=== PATIENT | male | born 1960 ===

== ENCOUNTER 2020-05-08 12:50 | Emergency (ER) | payer OTHER ==
--- NOTE | 2020-05-08 14:24 | CR ---
INDICATION: Cough TECHNIQUE: Chest 1 view. COMPARISON: None. FINDINGS: Cardiovascular and mediastinum: Heart size and vasculature are normal in caliber and appearance. Mediastinum is within normal limits. Lungs and pleural space: Lungs are clear. No sign of infiltrate or mass. No sign of pleural effusion. No pneumothorax. Bones and soft tissues: No significant findings. IMPRESSION: Unremarkable chest. Dictated by: Bert Cifuentes MD @ 05/08/2020 14:22:55 (Electronically Signed)
[2020-05-08 14:30] LABS: BLOOD UREA NITROGEN,BUN 25 mg/dL (7.0-18.0); CARBON DIOXIDE,CO2 28.8 mmol/L (21.0-32.0); CHLORIDE,CL 102 mmol/L (98-107); GLUCOSE RANDOM 123 mg/dL (74-106); POTASSIUM,K 4.7 mmol/L (3.5-5.1); SODIUM,NA 139 mmol/L (136-148)
--- NOTE | 2020-05-08 14:37 | EDM.PDOC ---
ED HPI GENERAL MEDICAL PROBLEM - General Chief Complaint: Respiratory Problem Stated Complaint: WHEEZING CHEST/COUGH Time Seen by Provider: 05/08/20 13:13 Source of Information: Reports: Patient History Limitations: Reports: No Limitations - History of Present Illness INITIAL COMMENTS - FREE TEXT/NARRATIVE: HISTORY AND PHYSICAL: History of present illness: Patient is a 59-year-old male who presents to the ED today with concern of a productive cough x2 days. Patient states he was told by his work that he needed to come in to be evaluated in the emergency room for possible pneumonia or bronchitis. Patient states that he would not like to do any Covid or influenza testing as he can "get this for free at the [facility] ". Patient states that he was told by his boss if he was cleared for pneumonia or bronchitis that he could come back to work. Patient states he is coughing up a small amount of phlegm. Patient states that he "gets this every year ". Patient states he has a history of prior [place], pneumonia, diabetes, and prior bronchitis. Patient denies any other symptoms or concerns. Patient denies fever, chills, chest pain, shortness of breath. Denies headache, neck stiff ness, change in vision, syncope, or near syncope. Denies nausea, vomiting, abdominal pain, diarrhea, constipation, or dysuria. Has not noted any blood in urine or stool. Patient has been eating and drinking appropriately. Review of systems: As per history of present illness and below otherwise all systems reviewed and negative. Past medical history: As per history of present illness and as reviewed below otherwise noncontributory. Surgical history: As per history of present illness and as reviewed below otherwise noncontributory. Social history: See social history for further information Family history: As per history of present illness and as reviewed below otherwise noncontributory. Physical exam: General: Patient is alert, oriented, and in no acute distress. Patient sitting comfortably on exam table. Vital stable and reviewed by me. HEENT: Atraumatic, normocephalic, pupils equal and reactive bilaterally, negative for conjunctival pallor or scleral icterus, mucous membranes moist, TMs normal bilaterally, throat clear, neck supple, nontender, trachea midline. No drooling or trismus noted. No meningeal signs. No hot potato voice noted. Lungs: Patient speaking clearly without breathlessness, no wheezing or stridor, no accessory muscle use or respiratory distress. Auscultation deferred due to current COV-ID 19 outbreak. Heart: Auscultation deferred due to current COV-ID 19 outbreak. Abdomen: Soft, nondistended, nontender. Negative for masses or hepatosplenomegaly. Negative for costovertebral tenderness. Pelvis: Stable nontender. Genitourinary: Deferred. Rectal: Deferred. Skin: Intact, warm, dry. No lesions or rashes noted. Extremities: Atraumatic, negative for cords or calf pain. Neurovascular unremarkable. Neuro: Awake, alert, oriented. Cranial nerves II through XII unremarkable. Cerebellum unremarkable. Motor and sensory unremarkable throughout. Exam nonfocal. Notes: Signs and symptoms that would prompt return to the ED thoroughly discussed with patient. Discussed importance for follow-up with his primary care provider. Voices understanding and is agreeable to plan of care. Denies any further questions or concerns at this time. Diagnostics: EKG, CBC, CMP, CXR, Trop (Declines influenza, covid) Therapeutics: None Prescription: None Impression: Cough Plan: 1. You can use OTC cough medications as directed for symptom management. 2. Encourage you to get COVID testing as discussed. If you continue to have symptoms, would recommend quarantine until either COVID testing performed or per [place] guidelines below. 3. For more specific guidelines regarding isolation/quarantine please visit this website. https://www.health.nd.gov/sites/www/files/documents/Files/MITZI/coronavirus/Factsh eet_for_People_With_COVID-19.pdf 4. Aloe up with a primary care provider as discussed. Return to the ED as needed and as discussed. Definitive disposition and diagnosis as appropriate pending reevaluation and review of above. - Related Data Allergies Allergy/AdvReac Type Severity Reaction Status Date / Time No Known Allergies Allergy Verified 05/08/20 13:20 Home Meds: Home Meds Aspirin 325 mg PO DAILY 05/08/20 [History] Insulin Detemir [Levemir] 125 units SUBCUT BID 05/08/20 [History] Levothyroxine 05/08/20 [History] atorvaSTATin [Lipitor] 05/08/20 [History] lisinopriL [Lisinopril] 05/08/20 [History] metFORMIN [Glucophage XR] 05/08/20 [History] Past Medical History HEENT History: Reports: Impaired Vision Cardiovascular History: Reports: High Cholesterol, Hypertension, [place] Gastrointestinal History: Reports: GERD Endocrine/Metabolic History: Reports: Diabetes, Type II, Hypothyroidism - Past Surgical History Cardiovascular Surgical History: Reports: Coronary Artery Stent Social & Family History - Family History Family Medical History: No Pertinent Family History - Tobacco Use Tobacco Use Status *Q: Current Every Day Tobacco User Years of Tobacco use: 14 Packs/Tins Daily: 1 - Caffeine Use Caffeine Use: Reports: None - Recreational Drug Use Recreational Drug Use: No ED ROS GENERAL - Review of Systems Review Of Systems: Comprehensive ROS is negative, except as noted in HPI. ED EXAM, GENERAL - Physical Exam Exam: See Below (see dictation) Course - Vital Signs Last Recorded V/S: Last Vital Signs Temp 97.1 F 05/08/20 15:37 Pulse 76 05/08/20 15:37 Resp 16 05/08/20 15:37 BP 118/71 05/08/20 15:37 Pulse Ox 95 05/08/20 15:37 - Orders/Labs/Meds Orders: Active Orders 24 hr Category Date Time Status Isolation [COMM] Routine Oth 05/08/20 13:42 Active Labs: Laboratory Tests 05/08/20 05/08/20 Range/Units 14:00 14:00 WBC 5.46 (4.0-11.0) K/uL RBC 4.81 (4.50-5.90) M/uL Hgb 13.2 (13.0-17.0) g/dL Hct 42.2 (38.0-50.0) % MCV 87.7 (80.0-98.0) fL MCH 27.4 (27.0-32.0) pg MCHC 31.3 (31.0-37.0) g/dL RDW Std Deviation 48.3 (28.0-62.0) fl RDW Coeff of Carolyn 15 (11.0-15.0) % Plt Count 208 (150-400) K/uL MPV 9.50 (7.40-12.00) fL Neut % (Auto) 67.0 (48.0-80.0) % Lymph % (Auto) 25.6 (16.0-40.0) % [place] % (Auto) 7.0 (0.0-15.0) % Eos % (Auto) 0.2 (0.0-7.0) % Baso % (Auto) 0.2 (0.0-1.5) % Neut # (Auto) 3.7 (1.4-5.7) K/uL Lymph # (Auto) 1.4 (0.6-2.4) K/uL [place] # (Auto) 0.4 (0.0-0.8) K/uL Eos # (Auto) 0.0 (0.0-0.7) K/uL Baso # (Auto) 0.0 (0.0-0.1) K/uL Nucleated RBC % 0.0 /100WBC Nucleated RBCs # 0 K/uL Sodium 139 (136-148) mmol/L Potassium 4.7 (3.5-5.1) mmol/L Chloride 102 (98-107) mmol/L Carbon Dioxide 28.8 (21.0-32.0) mmol/L BUN 25 H (7.0-18.0) mg/dL Creatinine 1.5 H (0.8-1.3) mg/dL Est Cr Clr Drug Dosing 56.10 mL/min Estimated GFR (MDRD) 48.2 ml/min Glucose 123 H (74-106) mg/dL Calcium 9.2 (8.5-10.1) mg/dL Total Bilirubin 0.4 (0.2-1.0) mg/dL AST 21 (15-37) IU/L ALT 48 (14-63) IU/L Alkaline Phosphatase 82 (46-116) U/L Troponin I < 0.050 (0.000-0.056) ng/mL Total Protein 7.5 (6.4-8.2) g/dL Albumin 3.6 (3.4-5.0) g/dL Globulin 3.9 (2.6-4.0) g/dL Albumin/Globulin Ratio 0.9 (0.9-1.6) Departure - Departure Time of Disposition: 15:19 Disposition: Home, Self-Care 01 Clinical Impression: Cough - Discharge Information Instructions: Cough, Adult, [id number] Referrals: Amanda Barrios PA-C [Primary Care Provider] - Forms: ED Department Discharge Additional Instructions: The following information is given to patients seen in the emergency department who are being discharged to home. This information is to outline your options for follow-up care. We provide all patients seen in our emergency department with a follow-up referral. The need for follow-up, as well as the timing and circumstances, are variable depending upon the specifics of your emergency department visit. If you don't have a primary care physician on staff, we will provide you with a referral. We always advise you to contact your personal physician following an emergency department visit to inform them of the circumstance of the visit and for follow-up with them and/or the need for any referrals to a consulting specialist. The emergency department will also refer you to a specialist when appropriate. This referral assures that you have the opportunity for follow-up care with a specialist. All of these measure are taken in an effort to provide you with optimal care, which includes your follow-up. Under all circumstances we always encourage you to contact your private physician who remains a resource for coordinating your care. When calling for follow-up care, please make the office aware that this follow-up is from your recent emergency room visit. If for any reason you are refused follow-up, please contact the [facility] Emergency Department at and asked to speak to the emergency department charge nurse. [facility] [address] [place] [id number] [address] [address] 1. You can use OTC cough medications as directed for symptom management. 2. Encourage you to get COVID testing as discussed. If you continue to have symptoms, would recommend quarantine until either COVID testing performed or per [place] guidelines below. 3. For more specific guidelines regarding isolation/quarantine please visit this website. https://www.health.nd.gov/sites/www/files/documents/Files/MITZI/coronavirus/Factsh eet_for_People_With_COVID-19.pdf 4. Aloe up with a primary care provider as discussed. Return to the ED as needed and as discussed. Sepsis Event Note (ED) - Evaluation Sepsis Screening Result: No Definite Risk - Focused Exam Vital Signs: Vital Signs Temp Pulse Resp BP Pulse Ox 05/08/20 15:37 97.1 F 76 16 118/71 95 05/08/20 13:15 97 F 79 18 109/59 L 95 - My Orders Last 24 Hours: My Active Orders 05/08/20 13:42 Isolation [COMM] Routine - Assessment/Plan Last 24 Hours: My Active Orders 05/08/20 13:42 Isolation [COMM] Routine
--- NOTE | 2020-05-09 07:32 | PCM.SN.2 ---
#1 Interpretation EKG Date: 05/08/20 Time: 14:21 Rhythm: NSR Rate (Beats/Min): 73 [place]: Normal P-Wave: Present QRS: Normal ST-T: Normal QT: Normal Comparison: NA - No Prior EKG EKG Interpretation Comments: Normal Sinus Rhythm
== END 2020-05-08 15:37 | disposition home or self-care (01) ==
LOC: MW.ED 12:50 → EDBD 12:50 → MW.ED 15:37
DX: R05 Cough (principal); I10 Essential (primary) hypertension; E78.00 Pure hypercholesterolemia, unspecified; E11.9 Type 2 diabetes mellitus without complications; E03.9 Hypothyroidism, unspecified; I25.2 Old myocardial infarction; F17.210 Nicotine dependence, cigarettes, uncomplicated; Z95.5 Presence of coronary angioplasty implant and graft; Z79.4 Long term (current) use of insulin; Z79.82 Long term (current) use of aspirin; Z79.899 Other long term (current) drug therapy
CPT/HCPCS: 36415; 71045; 71045-26; 80053; 84484; 85025; 93010; 99282; 99284-25